=== PATIENT | male | born 1965 | race Caucasian/White ===

== ENCOUNTER 2024-08-28 14:23 | Emergency (ER) | payer BC, SELFPAY ==
[2024-08-28 14:26] VITALS: BMI 28.3
[2024-08-28 15:18] VITALS: BP 114/67; PULSE 92; RESP 18; TEMP 37; O2SAT 96
--- NOTE | 2024-08-28 15:25 | PD.EDRME ---
Rapid Medical Screening Exam RME Arrival date/time: 08/28/24 14:23 59-year-old male with a history of [id number] diabetes reports with complaints of dizziness and elevated blood glucose levels this afternoon Chief Complaint: General Adult/Misc Complain Time Seen by Provider: 08/28/24 14:45 Vital signs: Vital Signs Temperature 98.6 F 08/28/24 15:18 Pulse Rate 92 08/28/24 15:18 Respiratory Rate 18 08/28/24 15:18 Blood Pressure 114/67 08/28/24 15:18 Pulse Oximetry (%) 96 08/28/24 15:18 Oxygen Delivery Method Room Air 08/28/24 15:18
[2024-08-28 15:58] LABS: Collection Type, Urine Clean Catch; RBC,Urine 0 /hpf (0-3); WBC,Urine 0 /hpf (0-5)
[2024-08-28 16:03] LABS: Beta Hydroxybutyrate 0.3 mmol/L (<0.6)
[2024-08-28 16:05] LABS: Basophils # (Auto) 0.1 Thou/mm3 (0.0-0.2); Basophils % (Auto) 1 % (0-2.5); Eosinophils % (Auto) 1 % (0-10); Hematocrit 38.2 % (41.0-53.0); Hemoglobin 10.6 g/dL (13.5-16.0); Immature Granulocytes % (Auto) 0 % (0-0); Immature Granulocytes Auto 0.03 Thou/mm3 (0.00-0.00); Lymphocytes # (Auto) 2.2 Thou/mm3 (1.0-4.8); Lymphocytes % (Auto) 26 % (10-50); Mean Corpuscular HGB Conc 27.7 g/dl (31.0-37.0); Mean Corpuscular Hemoglobin 18.7 pg (25.0-35.0); Mean Corpuscular Volume 67 fL (80-100); Monocytes # (Auto) 0.7 Thou/mm3 (0.0-0.8); Monocytes % (Auto) 8 % (0-12); Neutrophils # (Auto) 5.5 Thou/mm3 (1.8-7.7); Neutrophils % (Auto) 64 % (37-80); Nucleated Red Blood Cell % 0 /100 WBC (0); Platelet Count 156 Thou/mm3 (140-440); RDW Standard Deviation 42.5 fL (35.1-43.9); Red Blood Count 5.67 Miln/mm3 (4.50-5.90); White Blood Count 8.5 Thou/mm3 (3.8-10.6)
[2024-08-28 16:22] LABS: Alanine Aminotransferase 40 U/L (10-49); Albumin, Serum 4.4 gm/dL (3.5-5.0); Albumin/Globulin Ratio 1.2 (1.2-2.2); Alkaline Phosphatase 104 U/L (46-116); Anion Gap 10 (7-16); Aspartate Amino Transferase 48 U/L (0-34); BUN/Creatinine Ratio 21 Ratio (12-20); Blood Urea Nitrogen 23 mg/dL (9-23); Carbon Dioxide 23.9 mMol/L (20.0-31.0); Chloride 98 mMol/L (98-107); Creatinine (Component) 1.1 mg/dL (0.6-1.3); Estimated Creatinine Clearance 62.3 mL/min (>60); Globulin 3.8 gm/dL (2.3-3.5); Glucose 380 mg/dL (74-106); Osmolality,Calculated 284 (275-295); Potassium 4.4 mMol/L (3.4-5.1); Sodium 132 mMol/L (136-145); Total Protein 8.2 gm/dL (5.7-8.2); eGFR > 60 See Note
[2024-08-28 16:34] LABS: Bilirubin,Urine Negative (Negative); Blood,Urine Negative (Negative); Clarity,Urine Clear (Clear/Hazy); Color,Urine Colorless (Lt Yel-Yel); Culture Indicated,Urine Not Indicated; Glucose, Urine 4+ (Negative); Ketones,Urine Negative (Negative); Leukocyte Esterase,Urine Negative (Negative); Nitrite,Urine Negative (Negative); PH,Urine 6.5 (5.0-7.0); Protein,Urine Negative (Neg - Trace); Specific Gravity,Urine 1.031 (1.001-1.035); Squamous Epithelial Cell,Urine < 1 /hpf (0-5); Urobilinogen,Urine Negative mg/dL (0.0-1.0)
[2024-08-28 17:34] LABS: Path Review Blood Smear Sent to Pathologist
--- NOTE | 2024-08-28 19:29 | EDNOTE_ITS ---
<Statement entered by Sailaja Moon MD - 08/29/24 01:46> As co-signing physician, I was present and available for consult prn. I concur with the plan and care as documented by the midlevel provider. ED Dizzyness RME/HPI General Chief Complaint: General Adult/Misc Complain Stated Complaint: HIGH BOOD SUGAR, FEELING DIZZI Time Seen by Provider: 08/28/24 14:45 Source: patient and family Arrival date/time: 08/28/24 14:23 59-year-old male with past medical history of diabetes and hypertension with family at bedside presents emergency department complaining of dizziness and elevated blood sugar. Patient reports was doing yard work outside and reported felt dizzy went inside and checked his blood sugar and it was greater than 500. Patient denies any fever, chills, vomiting, diarrhea, vision changes, focal weakness, or any other associated symptom. At time of exam patient reports symptoms had completely resolved. Mode of arrival: ambulatory Limitations: no limitations RME / HPI RME / HPI Narrative: 08/28/24 14:23 59-year-old male with a history of [id number] diabetes reports with complaints of dizziness and elevated blood glucose levels this afternoon Related Data Home Medications ?Medication ?Instructions ?Recorded ?Confirmed ferrous sulfate 325 mg (65 mg 1 tab PO DAILY 01/17/22 01/17/22 iron) tablet lisinopril 20 mg tablet 1 tab PO DAILY 01/17/2201/02 metformin 1,000 mg tablet 1,000 tab PO BID 01/17/22 pioglitazone 45 mg tablet 1 tab PO DAILY 01/17/2201/02 Previous Rx's ?Medication ?Instructions ?Recorded hydrocodone 5 mg-acetaminophen 325 1 tab PO BID PRN pa in #14 tabs 01/26/23 mg tablet naproxen 500 mg tablet 500 mg PO BID PRN pain #30 t abs 01/26/23 Allergies Allergy/AdvReac Type Severity Reaction Status Date / Time No Known Allergies Allergy Verified 08/28/24 14:31 Review of Systems Review of Systems Systems Reviewed: All systems reviewed, normal except as documented Constitutional Constitutional: Reports system reviewed and no additional complaints, except as documented, Denies body ache(s), Denies chills and Denies fever(s) Eyes Eyes: Reports system reviewed and no additional complaints, except as documented and Denies change in vision ENT Ears, Nose, Mouth, and Throat: Reports system reviewed and no additional complaints, except as documented, Denies disequilibrium, Denies dizziness, Denies sore throat and Reports vertigo Cardiovascular Cardiovascular: Reports system reviewed and no additional complaints, except as documented, Denies chest pain and Denies dyspnea Respiratory Respiratory: Reports system reviewed and no additional complaints, except as documented, Denies chest congestion, Denies cough and Denies dyspnea Gastrointestinal Gastrointestinal: Reports system reviewed and no additional complaints, except as documented, Denies abdominal pain, Denies nausea and Denies vomiting Musculoskeletal Musculoskeletal: Reports system reviewed and no additional complaints, except as documented, Denies abnormal gait and Denies arthralgias Integumentary/Breasts Skin/Breast: Reports system reviewed and no additional complaints, except as documented, Denies erythema, Denies rash and Denies wounds Neurologic Neurologic: Reports system reviewed and no additional complaints, except as documented, Denies abnormal gait, Denies disequilibrium, Denies dizziness and Reports vertigo Past Medical History Past Medical History CARDIAC: Positive Hypertension; Negative Cardiac Disorders or Congestive Heart Failure RESPIRATORY: Negative Chronic Obstructive Pulmonary Disease (COPD) or Asthma GENITOURINARY: Negative Renal Disease ENDOCRINE: Positive Diabetes Mellitus Type 2; Negative Diabetes Mellitus Type 1 HEMATOLOGIC: Negative Sickle Cell Disease Social History SMOKING STATUS: Never smoker ED Exam General Limitations: Present no limitations General appearance: Present alert and in no apparent distress Head Head exam: Present atraumatic Eye Eye exam: Present normal appearance, PERRL and EOMI ENT ENT exam: Present normal exam, normal oropharynx and mucous membranes moist Neck Neck exam: Present normal inspection, full ROM and trachea midline Chest Chest inspection: Present normal inspection and symmetric chest wall rise Respiratory Respiratory exam: Present normal lung sounds bilaterally Cardiovascular Cardiovascular exam: Present regular rate, normal rhythm and normal heart sounds Abdominal Exam Abdominal exam: Present soft and normal bowel sounds Extremities Exam Extremities exam: Present normal inspection and full ROM Back Exam Back exam: Present normal inspection and full ROM Neurological Exam Neurological exam: Present alert, oriented X3 and CN II-XII intact Psychiatric Psychiatric exam: Present normal affect and normal mood Skin Skin exam: Present warm, dry, intact and normal color Course Quality Measures none Orders Category Date Time Status Beta Hydroxybutyrate Stat Lab 08/28/24 15:33 Completed CBC Stat Lab 02/24/25 15:33 Completed CMP [Comprehensive Metabolic Panel] Stat Lab 08/28/24 15:33 Completed Path Review Blood Smear Stat Lab 08/28/24 15:33 Completed UA, C/S IF [Urinalysis, C/S if Indicated] Stat Lab 08/28/24 15:42 Completed Vital Signs Vital signs: Vital Signs Temperature 98.6 F 08/28/24 15:18 Pulse Rate 92 08/28/24 15:18 Respiratory Rate 18 08/28/24 15:18 Blood Pressure 114/67 08/28/24 15:18 Pulse Oximetry (%) 96 08/28/24 15:18 Oxygen Delivery Method Room Air 08/28/24 15:18 96% room air within normal limits Dizziness MDM Narrative MDM Narrative:: 59-year-old male with past medical history of diabetes and hypertension with family at bedside presents emergency department complaining of dizziness and elevated blood sugar. Patient reports was doing yard work outside and reported felt dizzy went inside and checked his blood sugar and it was greater than 500. Patient denies any fever, chills, vomiting, diarrhea, vision changes, focal weakness, chest pain, or any other associated symptom. At time of exam patient reports symptoms had completely resolved. CBC was unremarkable for any leukocytosis or anemia. CMP was unremarkable for any elevated LFTs or gross electrolyte abnormalities. Beta-hCG within normal limits. Blood sugar on lab work was 380 and had decreased to 232 after drinking fluids while waiting in the waiting room. Patient reports takes metformin twice a day and Jardiance daily. Elevated blood sugar and patient possibly being out in the hot sun possible cause of symptoms. Patient reports after drinking water in the waiting room felt better. Instructed to continue taking medication as prescribed drink plenty of fluids and continue to monitor blood sugar. Instructed to have close follow-up with primary care provider return immediately to emergency department for any worsening symptoms or as needed. Patient data External records reviewed:: [facility] previous records Clinical information provided by:: patient and family Social determinants that could affect healthcare access:: none Patient has the following chronic illnesses:: See chart How is presenting disease/condition affected by chronic disease/condition?: exacerbated by Evaluation data The following diagnostics were reviewed and interpreted by me:: lab results Lab and/or radiology exams considered but not ordered:: Ordered Interpretation Summary: Interpreted by me Medications / Prescriptions Medications or Prescriptions considered but not ordered:: N/A Medication administrations:: N/A Consultations Consultation(s) initiated? (list below): No Diagnosis Dizziness Differential Diagnosis: benign paroxysmal positional vertigo, orthostatic hypotension, cerebrovascular accident, acute vestibular neuronitis and transient cerebral ischemia Most likely diagnosis given after review of the tests above:: Hyperglycemia Admission Indicated Admission indicated?: not indicated Admission Request Was there a request for admission?: No Disposition Plan Disposition Plan: Discharge Discharge Attestation Discharge Attestation: The patient and all family members were given an opportunity to ask questions and understood the discharge instructions. Discharge instructions specifically effects, indications for sooner follow up or return to the emergency department, and the expected course of current diagnosis. Patient condition: Stable Discharge Plan Plan Patient Disposition: HOME (Self Care) Disposition Comment: Stable Prescriptions/Referrals Prescriptions/Med Rec: No Action metformin 1,000 mg tablet 1,000 tab PO BID lisinopril 20 mg tablet 1 tab PO DAILY pioglitazone 45 mg tablet 1 tab PO DAILY ferrous sulfate 325 mg (65 mg iron) tablet 1 tab PO DAILY naproxen 500 mg tablet 500 mg PO BID PRN (Reason: pain) Qty: 30 0RF hydrocodone-acetaminophen 5-325 mg tablet 1 tab PO BID MDD 2 PRN (Reason: pain) Qty: 14 0RF Referrals: Sailaja Lau FNP [Primary Care Provider] - In 1 week Problem List Clinical Impression: Hyperglycemia due to diabetes mellitus Patient/Caregiver Discharge Instructions Discharge Activity: activity as tolerated Education Materials: Do You Have Diabetes?, ED Diabetes with High Blood Sugar, ED Diet: Diabetes Additional Instructions: Drink plenty of fluids and stay hydrated. Take your diabetes medication as prescribed. Continue to monitor your blood sugar. Close follow-up with primary care provider within 1 week. Return to emergency department for any worsening symptoms or as needed. Print Language: Yoruba Stand Alone Forms: Michelle Award Info., Patient Portal Info Letter CAROL/JOSIE Supervising Physician CAROL/JOSIE Supervising Physician: Dr. Moon
== END 2024-08-28 19:45 | disposition home or self-care (01) ==
PROVIDERS: Physician Assistant; Emergency Provider Emergency Medicine; PCP Nurse Practitioner Family
DX: E11.65 Type 2 diabetes mellitus with hyperglycemia (principal); I10 Essential (primary) hypertension
CPT/HCPCS: 36415; 80053; 81001; 82010; 85025; 99283

== ENCOUNTER → 2025-07-02 | Outpatient (CLI) | payer BC, SELFPAY ==
[2025-07-02 09:06] LABS: Collection Type, Urine Clean Catch; RBC,Urine 0 /hpf (0-3); Squamous Epithelial Cell,Urine 0 /hpf (0-5); WBC,Urine 0 /hpf (0-5)
[2025-07-02 09:37] LABS: Basophils # (Auto) 0.1 Thou/mm3 (0.0-0.2); Basophils % (Auto) 1 % (0-2.5); Eosinophils # (Auto) 0.1 Thou/mm3 (0.0-0.5); Eosinophils % (Auto) 1 % (0-10); Lymphocytes % (Auto) 43 % (10-50); Monocytes # (Auto) 0.4 Thou/mm3 (0.0-0.8); Monocytes % (Auto) 6 % (0-12); Neutrophils % (Auto) 49 % (37-80); Nucleated Red Blood Cell % 0 /100 WBC (0)
[2025-07-02 09:38] LABS: Hematocrit 40.3 % (41.0-53.0); Hemoglobin 11.3 g/dL (13.5-16.0); Immature Granulocytes Auto 0.02 Thou/mm3 (0.00-0.00); Lymphocytes # (Auto) 2.7 Thou/mm3 (1.0-4.8); Mean Corpuscular HGB Conc 28.0 g/dl (31.0-37.0); Mean Corpuscular Hemoglobin 18.9 pg (25.0-35.0); Mean Corpuscular Volume 68 fL (80-100); Neutrophils # (Auto) 3.1 Thou/mm3 (1.8-7.7); Nucleated Red Blood Cell # 0.00 Thou/mm3 (0.00-0.00); Platelet Count 109 Thou/mm3 (140-440); RDW Standard Deviation 46.9 fL (35.1-43.9); Red Blood Count 5.97 Miln/mm3 (4.50-5.90); White Blood Count 6.4 Thou/mm3 (3.8-10.6)
[2025-07-02 09:46] LABS: Prostate Specific Antigen < 0.10 ng/mL (0-4.00)
[2025-07-02 09:47] LABS: Bilirubin,Urine Negative (Negative); Blood,Urine Negative (Negative); Clarity,Urine Clear (Clear/Hazy); Color,Urine Lt-Yellow (Lt Yel-Yel); Culture Indicated,Urine Not Indicated; Glucose, Urine 4+ (Negative); Ketones,Urine 1+ (Negative); Leukocyte Esterase,Urine Negative (Negative); Nitrite,Urine Negative (Negative); PH,Urine 6.0 (5.0-7.0); Protein,Urine Negative (Neg - Trace); Specific Gravity,Urine 1.038 (1.001-1.035); Urobilinogen,Urine Negative mg/dL (0.0-1.0)
[2025-07-02 09:50] LABS: Alanine Aminotransferase 81 U/L (10-49); Albumin, Serum 4.2 gm/dL (3.4-4.8); Albumin/Globulin Ratio 1.3 (1.2-2.2); Alkaline Phosphatase 113 U/L (46-116); Anion Gap 14 (7-16); Aspartate Amino Transferase 79 U/L (0-34); BUN/Creatinine Ratio 20 Ratio (12-20); Bilirubin,Total 1.5 mg/dL (0.3-1.2); Blood Urea Nitrogen 16 mg/dL (9-23); Calcium 9.5 mg/dL (8.3-10.6); Calcium (Corrected) 9.5 mg/dL (8.5-10.1); Carbon Dioxide 26.3 mMol/L (20.0-31.0); Cardiac Risk Estimate 6.0 RATIO (4.0-6.7); Chloride 101 mMol/L (98-107); Cholesterol 151 mg/dL (132-200); Creatinine (Component) 0.8 mg/dL (0.6-1.3); Globulin 3.3 gm/dL (2.3-3.5); Glucose 210 mg/dL (74-106); HDL Cholesterol 25 mg/dL (40-60); LDL Cholesterol,Calculated 83 mg/dL (0-130); Osmolality,Calculated 288 (275-295); Potassium 4.1 mMol/L (3.4-5.1); Sodium 141 mMol/L (136-145); Thyroid Stimulating Hormone 4.41 uIU/mL (0.55-4.78); Total Protein 7.5 gm/dL (5.7-8.2); Triglycerides 216 mg/dL (30-150); eGFR > 60 See Note
[2025-07-02 10:10] LABS: Creatinine MALB Rnd Ur 34 mg/dL (30-125); Microalbumin Creat Ratio 18 mg/gCrea (<30); Microalbumin, Random Urine 6 mg/L (0-300)
[2025-07-02 10:20] LABS: Glucose Estimated Average 194 mg/dL (80-131); Hemoglobin A1C 8.4 % Hgb (4.8-6.0)
[2025-07-02 12:36] LABS: Path Review Blood Smear Sent to Pathologist
== END | disposition home or self-care (01) ==
PROVIDERS: PCP Nurse Practitioner Family; Referring Provider Nurse Practitioner Family; Visit Provider Nurse Practitioner Family
DX: E11.65 Type 2 diabetes mellitus with hyperglycemia (principal); I10 Essential (primary) hypertension; E78.5 Hyperlipidemia, unspecified; Z12.5 Encounter for screening for malignant neoplasm of prostate
CPT/HCPCS: 36415; 80053; 80061; 81001; 82043; 82570; 83036; 84153; 84443; 85025